=== PATIENT | male | born 1950 | race Caucasian/White ===

== ENCOUNTER 2017-12-24 22:08 | Emergency (ER) | payer MEDICARE, OTHER ==
[~2017-12-24] VITALS: Ht 180.3 cm; Wt 100.0 kg
[2017-12-24 22:13] VITALS: TEMP 97.2
[2017-12-24] MEDS ORDERED: CANA100T PO (22:21)
[2017-12-24] MEDS ORDERED: PRINIVIL5 MG PO (22:21)
[2017-12-24] MEDS ORDERED: CRESTOR5 MG PO (22:21)
[2017-12-24] MEDS ORDERED: JANUVIA 100MG100 MG PO (22:22)
[2017-12-24] MEDS ORDERED: PREDNISONE20 MG PO (22:56)
[2017-12-24 23:27] VITALS: BP 146/79; PULSE 100
== END 2017-12-24 23:27 | disposition home or self-care (01) ==
LOC: COL.ER 22:08
DX: T78.1XXA Other adverse food reactions, not elsewhere classified, initial encounter (principal); L50.9 Urticaria, unspecified; E11.9 Type 2 diabetes mellitus without complications; I10 Essential (primary) hypertension; Z79.84 Long term (current) use of oral hypoglycemic drugs
CPT/HCPCS: J1200; J2405; J7030; J7512